=== PATIENT | female | born 1975 | race Caucasian/White ===

== ENCOUNTER → 2017-07-29 18:50 | Outpatient (REF) | payer OTHER, SELFPAY ==
[2017-07-29 19:27] LABS: Add Manual Diff / Slide Review NO; Basophils Percent Auto 0.8 % (0-2); Eosinophils Percent Auto 0.9 % (2-4); Hematocrit 43.8 % (36-46); Hemoglobin 14.9 g/dL (12.0-16.0); Lymphocytes Percent Auto 25.6 % (25-40); Mean Corpuscular HGB Conc 34.1 % (30-36); Mean Corpuscular Hemoglobin 31.7 PG (26-34); Mean Corpuscular Volume 92.9 fL (80-100); Monocytes Percent Auto 5.2 % (3-14); Neutrophils Absolute Auto 5900 /uL (3000-5900); Neutrophils Percent Auto 67.5 % (50-75); Platelet Count 198 X10^3/uL (150-400); Red Blood Cell Count 4.71 X10^6/uL (4.0-5.2); Red Cell Distribution Width 13.3 % (11.6-14.8); White Blood Cell Count 8.8 X10^3/uL (4.5-11.0)
[2017-07-29 19:56] LABS: Alanine Aminotransferase 28 IU/L (9-52); Albumin 4.6 g/dL (3.5-5.0); Albumin Globulin Ratio 1.5 (1.0-2.8); Alkaline Phosphatase 40 U/L (38-126); Aspartate Aminotransferase 20 IU/L (14-36); BUN Creatinine Ratio 21.7 (6-22); Bilirubin Total 0.7 mg/dL (0.2-1.3); Blood Urea Nitrogen 13 mg/dL (7-17); Calcium 9.4 mg/dL (8.4-10.2); Carbon Dioxide 27 mmol/L (22-32); Chloride 101 mmol/L (98-107); Estimated Glomerular Filt Rate > 60.0 mL/min (>60); Glucose 101 mg/dL (70-100); HEMOLYSIS < 15 (0-50); Sodium 139 mmol/L (137-145); Total Protein 7.6 g/dL (6.3-8.2)
[2017-07-29 20:12] LABS: Free T3, Triiodothyronine Free 4.33 pg/mL (2.77-5.27)
[2017-07-29 20:26] LABS: Thyroid Stimulating Hormone 1.47 uIU/mL (0.47-4.68)
== END ==
LOC: LAB 18:50
PROVIDERS: Family Provider Family Medicine; PCP Family Medicine; Visit Provider Registered Nurse
DX: F41.9 Anxiety disorder, unspecified (principal)
CPT/HCPCS: 80053; 84439; 84443; 84481; 85025

== ENCOUNTER → 2017-11-08 07:43 | Outpatient (CLI) | payer OTHER, SELFPAY ==
[2017-11-08 09:05] LABS: HEMOLYSIS < 15 (0-50); Iron 148 ug/dL (37-170)
[2017-11-08 09:11] LABS: Glucose 96 mg/dL (70-100)
[2017-11-08 09:15] LABS: Percent Iron Saturation 49 % (15-50); Total Iron Binding Capacity 302 ug/dL (265-497); Transferrin 249 mg/dL (206-381)
[2017-11-12 15:06] LABS: Dehydroepiandrosterone Sulfate 138 mcg/dL (19-231); Insulin Level Total 1.4 uIU/mL (2.0-19.6)
[2017-11-12 16:12] LABS: Estradiol 96 pg/mL
== END ==
PROVIDERS: PCP Family Medicine; Visit Provider Obstetrics & Gynecology
DX: L65.9 Nonscarring hair loss, unspecified (principal); E28.1 Androgen excess
CPT/HCPCS: 36415; 82627; 82670; 82947; 83525; 83540; 83550

== ENCOUNTER → 2019-05-01 14:22 | Outpatient (CLI) | payer OTHER, SELFPAY ==
--- NOTE | 2019-05-01 | DI.RAD.S_ITS ---
PROCEDURE: XR SHOULDER RT MIN 2V INDICATIONS: RIGHT SHOULDER PAIN TECHNIQUE: 3 views of the shoulder were acquired. COMPARISON: None. FINDINGS: Bones: No fractures or dislocations. No suspicious bony lesions. Visualized ribs appear intact. Mild AC joint degeneration. Soft tissues: No suspicious soft tissue calcifications. IMPRESSION: Mild degenerative changes. If the patient's pain or other symptoms persist, consider further evaluation with MRI Dictated by: Ciaran Block M.D. on 05/01/2019 at 16:42 Approved by: Ciaran Block M.D. on 05/01/2019 at 16:43
== END ==
PROVIDERS: Family Provider Family Medicine; PCP Family Medicine; Referring Provider Family Medicine; Visit Provider Family Medicine
DX: M25.511 Pain in right shoulder (principal); M19.011 Primary osteoarthritis, right shoulder
CPT/HCPCS: 73030

== ENCOUNTER 2022-11-06 14:32 | Emergency (ER) | payer OTHER, SELFPAY ==
[2022-11-06 14:43] VITALS: BP 140/77; PULSE 89; RESP 18; TEMP 36.9; O2SAT 99; BMI 26.4
[2022-11-06 17:01] LABS: Add Manual Diff / Slide Review NO; Basophils Absolute Auto 100 /uL (0-100); Basophils Percent Auto 0.9 % (0-2); Eosinophils Absolute Auto 100 /uL (0-450); Eosinophils Percent Auto 0.9 % (2-4); Hematocrit 42.2 % (36-46); Hemoglobin 14.2 g/dL (12.0-16.0); Lymphocytes Absolute Auto 2400 /uL (1100-4500); Lymphocytes Percent Auto 23.8 % (25-40); Mean Corpuscular HGB Conc 33.8 % (30-36); Mean Corpuscular Hemoglobin 30.4 PG (26-34); Mean Corpuscular Volume 89.9 fL (80-100); Monocytes Absolute Auto 400 /uL (0-900); Monocytes Percent Auto 4.4 % (3-14); Neutrophils Absolute Auto 7100 /uL (1500-7000); Platelet Count 253 X10^3/uL (150-400); Red Blood Cell Count 4.69 X10^6/uL (4.0-5.2); White Blood Cell Count 10.1 X10^3/uL (4.5-11.0)
[2022-11-06 17:12] LABS: Alanine Aminotransferase 15 IU/L (<35); Albumin 4.2 g/dL (3.5-5.0); Albumin Globulin Ratio 1.2 (1.0-2.8); Alkaline Phosphatase 46 U/L (38-126); Aspartate Aminotransferase 21 IU/L (14-36); BUN Creatinine Ratio 18.8 (6-22); Bilirubin Total 0.4 mg/dL (0.2-1.3); Blood Urea Nitrogen 13 mg/dL (7-17); Carbon Dioxide 25 mmol/L (22-32); Chloride 106 mmol/L (98-107); Estimated Glomerular Filt Rate > 60 mL/min (>60); Globulin 3.4 g/dL (1.7-4.1); Glucose 101 mg/dL (70-100); HEMOLYSIS < 15 (0-50); Lipase 44 U/L (23-300); Potassium 4.1 mmol/L (3.4-5.1); Sodium 139 mmol/L (137-145); Total Protein 7.6 g/dL (6.3-8.2)
[2022-11-06 17:28] LABS: Procalcitonin < 0.03 ng/mL (<0.5)
--- NOTE | 2022-11-06 17:31 | DI.CT.S_ITS ---
PROCEDURE: CT ABDOMEN PELVIS W CON INDICATIONS: concern for perianal/rectal abscess TECHNIQUE: After the administration of oral and IV contrast, axial sections were acquired from the lung bases to the pubic symphysis. Coronal and sagittal reformats were performed. For radiation dose reduction, the following was used: automated exposure control, adjustment of mA and/or kV according to patient size. COMPARISON: None. FINDINGS: Image quality: Excellent. Lung bases: Unremarkable. Heart: No significant findings. ABDOMEN: Liver: No focal lesion. Gallbladder: Within normal limits. Biliary ducts: Unremarkable. Pancreas: Unremarkable. Spleen: Unremarkable. Adrenal Glands: Unremarkable. Kidneys and Ureters: No hydronephrosis. Stomach and Bowel: Stomach is not distended. No small bowel obstruction. Prominent stool in the colon. Normal appendix. Rectal tube. Contrast in the distal colon and rectum from enema. No perianal fistula is identified. Peritoneum: No abnormal intraperitoneal fluid. No free air. Ventral Wall: No hernia. Abdominal Nodes: No retroperitoneal or mesenteric adenopathy by size criteria. Vessels: Aorta and inferior vena cava are normal in size. PELVIS: Pelvic Organs: IUD centered in the uterus. No free fluid. Bladder: No stone. Pelvic Nodes: No enlarged lymph nodes. Miscellaneous: No inguinal hernias are seen. Bones: No aggressive appearing lesion. Small bone island in the right hip. Mild DDD at L1-L2. IMPRESSION: 1. No perianal fistula identified. No contrast leak. No free fluid. 2. Prominent stool in the colon. 3. Normal appendix. Dictated by: Bala Martin M.D. on 11/06/2022 at 18:25 Approved by: Bala Martin M.D. on 11/06/2022 at 18:31
[2022-11-06] MEDS: HYDROMORPHONE 1 MG INJ IV (17:49)
--- NOTE | 2022-11-06 17:56 | ED_ITS ---
HPI - Skin/Abscess/Foreign Bdy <Deolres Kelly PA-C - Last Filed: 11/07/22 12:39> General Chief complaint: Skin/Abscess/Foreign Body Stated complaint: bleeding from rectum tore open Time Seen by Provider: 11/06/22 16:02 Source: patient Mode of arrival: Ambulatory Limitations: no limitations History of Present Illness HPI narrative: Patient is a 47-year-old female who presents concern for a perirectal abscess. She reports she initially thought she had a hemorrhoid. It became more tender over the past several days and 2 days ago started draining purulent material. She made an appointment with a surgery Clinic in [place] but it wasn't until the end of the week and she is in too much pain to go to work today. She is been feeling unwell but denies fever or chills, chest pain, cough, nausea or vomiting. She denies vaginal discharge or urinary symptoms. She has not stoole d recently due to the pain. It is difficult to sit down. 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 Related Data Home Medications Medication Instructions Recorded Confirmed methylphenidate HCl 10 mg tablet 5 mg PO BID 10/09/17 11/13/17 (Ritalin) venlafaxine 150 mg 150 mg PO DAILY 11/13/17 11/13/17 capsule,extended release 24 hr (Effexor XR) Previous Rx's Medication Instructions Recorded eflornithine 13.9 % topical cream 13.9 % topical BID #45 grams 11/13/17 (Vaniqa) amoxicillin 875 mg-potassium 1 tab PO BID #10 tabs 11/06/22 clavulanate 125 mg tablet hydrocortisone 2.5 % topical cream 1 applic WA QD-BID PRN hemorrhoids 11/06/22 with perineal applicator #30 grams (Anusol-HC) Allergies Allergy/AdvReac Type Severity Reaction Status Date / Time meloxicam [MELOXICAM] Allergy Unknown Verified 11/06/22 14:51 metronidazole [METRONIDAZOLE] Allergy Unknown Verified 11/06/22 14:51 Sulfa (Sulfonamide Allergy Unknown Verified 11/06/22 14:51 Antibiotics) [SULFA (SULFONAMIDE ANTIBIOTICS)] Review of Systems <Delores Kelly PA-C - Last Filed: 11/07/22 12:39> Review of Systems ROS Unobtainable: All systems reviewed & are unremarkable except as noted in HPI and below Patient History <Delores Kelly PA-C - Last Filed: 11/07/22 12:39> Medical History ADHD Ankle pain (~2016) Asthma Bipolar disorder Chicken pox (~1978) Eczema Fractures Heavy menstrual period (~1986) Irregular menstrual cycle (~1986) Migraines Ovarian cyst (~1986) Painful menstrual periods (~1986) PCOS (polycystic ovarian syndrome) Post traumatic stress disorder (PTSD) Rosacea Seasonal allergies Surgical History Anesthesia History of ankle surgery (~2016) History of hip surgery (~2009) History of knee surgery (~2015) S/P arthroscopic knee surgery S/P ORIF (open reduction internal fixation) fracture Status post hip surgery Family History Father Mental health problem Brother Hypertension Grandmother Obesity Diabetes mellitus Congestive heart failure Heart disease Hyperlipidemia Hypertension Grandfather Cancer Mental health problem Grandmother Diabetes mellitus Mental health problem Social History Smoking Status: Never smoker Smoking Status: Never smoker alcohol intake frequency: holidays/special occasions only Substance Use Type: marijuana Exam <Delores Kelly PA-C - Last Filed: 11/07/22 12:39> Narrative Exam Narrative: GENERAL: 47 year old patient appears stated age. Well-developed patient, in mo derate distress. NEURO: AOx3. HEAD: Atraumatic. Normocephalic. EYES: Pupils equal round and reactive. Extraocular motions intact. No scleral icterus. No injection or drainage. ENT: Nose without bleeding or purulent drainage. Airway patent. CARDIOVASCULAR: Regular rate and rhythm without murmurs, gallops, or rubs. RESPIRATORY: Clear to auscultation. Breath sounds equal bilaterally. No wheezes, rales, or rhonchi. GASTROINTESTINAL: Abdomen soft, patient reports mild diffuse tenderness over low er abdomen to palpation. Visual exam of anus consistent with tender hemorrhoid, significant tenderness of perineal tissue without fluctuance, erythema. No visible purulent drainage. EXTREMITIES: No edema or joint tenderness. SKIN: No rash or erythema of visible areas Initial Vital Signs Initial Vital Signs: Vital Signs Temperature 98.5 F 11/06/22 14:43 Pulse Rate 89 11/06/22 14:43 Respiratory Rate 18 11/06/22 14:43 Blood Pressure 140/77 11/06/22 14:43 Pulse Oximetry 99 11/06/22 14:43 Oxygen Delivery Method Room Air 11/06/22 14:43 <Melissa Kevin DO - Last Filed: 11/13/22 09:50> Initial Vital Signs Initial Vital Signs: Vital Signs Temperature 98.5 F 11/06/22 14:43 Pulse Rate 89 11/06/22 14:43 Respiratory Rate 18 11/06/22 14:43 Blood Pressure 140/77 11/06/22 14:43 Pulse Oximetry 99 11/06/22 14:43 Oxygen Delivery Method Room Air 11/06/22 14:43 Course <Delores Kelly PA-C - Last Filed: 11/07/22 12:39> Orders Ordered: Discontinued Medications Hydromorphone HCl (Hydromorphone 1 Mg Inj) 1 mg IV NOW ONE Stop: 11/06/22 17:45 Last Admin: 11/06/22 17:49 Dose: 1 mg Documented By: PETER Sodium Chloride (Normal Saline 0.9%) 1,000 mls @ 1,000 mls/hr IV BOLUS ONE Stop: 11/06/22 17:07 Last Admin: 11/06/22 18:10 Dose: Not Given Documented By: PETER Sodium Chloride (Normal Saline 0.9%) 1,000 mls @ 1,000 mls/hr IV BOLUS ONE Stop: 11/06/22 17:57 Last Infusion: 11/06/22 19:20 Dose: 0 mls/hr Documented By: Admin: 11/06/22 18:08 Dose: 1,000 mls/hr Documented By: PETER Ondansetron HCl (Ondansetron 4 Mg/2 Ml Inj) 4 mg IV NOW PRN PRN Reason: Nausea And Vomiting Ondansetron HCl (Ondansetron 4 Mg Odt) 4 mg SL NOW PRN PRN Reason: Nausea And Vomiting Vital Signs Vital signs: Vital Signs - 8 hr 11/06/22 14:43 11/06/22 18:08 11/06/22 18:09 Temperature 98.5 F Pulse Rate 89 70 Respiratory Rate 18 Blood Pressure 140/77 133/75 Pulse Oximetry 99 100 Oxygen Delivery Method Room Air Room Air 11/06/22 18:09 Temperature Pulse Rate 74 Respiratory Rate Blood Pressure Pulse Oximetry 100 Oxygen Delivery Method Room Air <Melissa Kevin DO - Last Filed: 11/13/22 09:50> Orders Ordered: Discontinued Medications Hydromorphone HCl (Hydromorphone 1 Mg Inj) 1 mg IV NOW ONE Stop: 11/06/22 17:45 Last Admin: 11/06/22 17:49 Dose: 1 mg Documented By: PETER Sodium Chloride (Normal Saline 0.9%) 1,000 mls @ 1,000 mls/hr IV BOLUS ONE Stop: 11/06/22 17:07 Last Admin: 11/06/22 18:10 Dose: Not Given Documented By: PETER Sodium Chloride (Normal Saline 0.9%) 1,000 mls @ 1,000 mls/hr IV BOLUS ONE Stop: 11/06/22 17:57 Last Infusion: 11/06/22 19:20 Dose: 0 mls/hr Documented By: Admin: 11/06/22 18:08 Dose: 1,000 mls/hr Documented By: PETER Ondansetron HCl (Ondansetron 4 Mg/2 Ml Inj) 4 mg IV NOW PRN PRN Reason: Nausea And Vomiting Ondansetron HCl (Ondansetron 4 Mg Odt) 4 mg SL NOW PRN PRN Reason: Nausea And Vomiting Vital Signs Vital signs: Vital Signs - 8 hr 11/06/22 14:43 11/06/22 18:08 11/06/22 18:09 Temperature 98.5 F Pulse Rate 89 70 Respiratory Rate 18 Blood Pressure 140/77 133/75 Pulse Oximetry 99 100 Oxygen Delivery Method Room Air Room Air 11/06/22 18:09 Temperature Pulse Rate 74 Respiratory Rate Blood Pressure Pulse Oximetry 100 Oxygen Delivery Method Room Air MDM - Skin/Abscess/Foreign Bdy <Delores Kelly PA-C - Last Filed: 11/07/22 12:39> Lab Data 11/06/22 16:40 11/06/22 16:40 Labs: Lab Results 11/06/22 11/06/22 11/06/22 Range/Units 16:40 16:40 16:40 WBC 10.1 (4.5-11.0) X10^3/uL RBC 4.69 (4.0-5.2) X10^6/uL Hgb 14.2 (12.0-16.0) g/dL Hct 42.2 (36-46) % MCV 89.9 (80-100) fL MCH 30.4 (26-34) PG MCHC 33.8 (30-36) % RDW 13.0 (11.6-14.8) % Plt Count 253 (150-400) X10^3/uL Neut % (Auto) 70.0 (50-75) % Lymph % (Auto) 23.8 L (25-40) % [place] % (Auto) 4.4 (3-14) % Eos % (Auto) 0.9 L (2-4) % Baso % (Auto) 0.9 (0-2) % Neut # (Auto) 7100 H (8217-0321) /uL Lymph # (Auto) 2400 (8640-4893) /uL [place] # (Auto) 400 (0-900) /uL Eos # (Auto) 100 (0-450) /uL Baso # (Auto) 100 (0-100) /uL Sodium 139 (137-145) mmol/L Potassium 4.1 (3.4-5.1) mmol/L Chloride 106 (98-107) mmol/L Carbon Dioxide 25 (22-32) mmol/L BUN 13 (7-17) mg/dL Creatinine 0.69 (0.52-1.04) mg/dL Estimated GFR > 60 (>60) mL/min BUN/Creatinine Ratio 18.8 (6-22) Glucose 101 H (70-100) mg/dL Lactate 1.0 (0.7-2.1) mmol/L Calcium 9.0 (8.4-10.2) mg/dL Total Bilirubin 0.4 (0.2-1.3) mg/dL AST 21 (14-36) IU/L ALT 15 (<35) IU/L Alkaline Phosphatase 46 (38-126) U/L Total Protein 7.6 (6.3-8.2) g/dL Albumin 4.2 (3.5-5.0) g/dL Globulin 3.4 (1.7-4.1) g/dL Albumin/Globulin Ratio 1.2 (1.0-2.8) Lipase 44 (23-300) U/L Procalcitonin < 0.03 (<0.5) ng/mL Imaging Data CT scan - abdomen/pelvis: Radiologist's Impression: PROCEDURE:? CT ABDOMEN PELVIS W CON ? INDICATIONS:? concern for perianal/rectal abscess ? TECHNIQUE:? After the administration of oral and IV contrast, axial sections were acquired from the lung bases to the pubic symphysis.? Coronal and sagittal reformats were performed.? For radiation dose reduction, the following was used:? automated exposure control, adjustment of mA and/or kV according to patient size. ? COMPARISON:? None. ? FINDINGS:? Image quality:? Excellent.? ? Lung bases:? Unremarkable.? ? Heart:? No significant findings. ? ? ABDOMEN: Liver:? No focal lesion. Gallbladder:? Within normal limits. Biliary ducts:? Unremarkable.? ? Pancreas:? Unremarkable.? ? Spleen:? Unremarkable.? ? Adrenal Glands:? Unremarkable.? ? Kidneys and Ureters:? No hydronephrosis.? ? ? Stomach and Bowel:? Stomach is not distended.? No small bowel obstruction.? Prominent stool in the colon.? Normal appendix.? Rectal tube.? Contrast in the distal colon and rectum from enema.? No perianal fistula is identified.? Peritoneum:? No abnormal intraperitoneal fluid.? No free air.? ? Ventral Wall: ? No hernia.? Abdominal Nodes:? No retroperitoneal or mesenteric adenopathy by size criteria.? Vessels:? Aorta and inferior vena cava are normal in size.? ? PELVIS: Pelvic Organs:? IUD centered in the uterus.? No free fluid. ? Bladder:? No stone. Pelvic Nodes: No enlarged lymph nodes.? Miscellaneous: No inguinal hernias are seen. ? ? ? Bones:? No aggressive appearing lesion.? Small bone island in the right hip.? Mild DDD at L1-L2. ? ? IMPRESSION:? 1. No perianal fistula identified.? No contrast leak.? No free fluid. ? 2. Prominent stool in the colon. ? 3. Normal appendix.? ? Dictated by: Bala Martin M.D. on 11/06/2022 at 18:25 ? ? Approved by: Bala Martin M.D. on 11/06/2022 at 18:31 ? MDM Narrative Medical decision making narrative: Multiple etiologies for patient's symptoms considered including, but not limited to: Cellulitis, perirectal or perianal abscess, fistula. Patient initially declined pain medications. Discussed imaging with Dr. Kevin who recommended IV contrast and rectal contrast. Patient agreed to pain medication in order to tolerate rectal contrast administration. CT without evidence of abscess or fistula. Labs without evidence of infection or sepsis. Given her report of purulent drainage 2 days ago, suspect there was an abscess that spontaneously drained and is no longer present. I do see a bleeding hemorrhoid that is very tender. She has a referral to a surgery Clinic in [place] in 2 days to have this addressed. Will prescribe 5 day course of Augmentin for this resolving abscess and Anusol for hemorrhoid treatment. Patient feels comfortable treating her constipation. Patient's symptoms improved over duration of stay with above-stated therapies. Findings and discharge diagnosis discussed with patient/family followed by verbalization of understanding Return precautions discussed with patient/family whom verbalize understanding of diagnosis and plan <Melissa Kevin, DO - Last Filed: 11/13/22 09:50> Lab Data Labs: Lab Results 11/06/22 11/06/22 11/06/22 Range/Units 16:40 16:40 16:40 WBC 10.1 (4.5-11.0) X10^3/uL RBC 4.69 (4.0-5.2) X10^6/uL Hgb 14.2 (12.0-16.0) g/dL Hct 42.2 (36-46) % MCV 89.9 (80-100) fL MCH 30.4 (26-34) PG MCHC 33.8 (30-36) % RDW 13.0 (11.6-14.8) % Plt Count 253 (150-400) X10^3/uL Neut % (Auto) 70.0 (50-75) % Lymph % (Auto) 23.8 L (25-40) % [place] % (Auto) 4.4 (3-14) % Eos % (Auto) 0.9 L (2-4) % Baso % (Auto) 0.9 (0-2) % Neut # (Auto) 7100 H (5129-8201) /uL Lymph # (Auto) 2400 (0600-0228) /uL [place] # (Auto) 400 (0-900) /uL Eos # (Auto) 100 (0-450) /uL Baso # (Auto) 100 (0-100) /uL Sodium 139 (137-145) mmol/L Potassium 4.1 (3.4-5.1) mmol/L Chloride 106 (98-107) mmol/L Carbon Dioxide 25 (22-32) mmol/L BUN 13 (7-17) mg/dL Creatinine 0.69 (0.52-1.04) mg/dL Estimated GFR > 60 (>60) mL/min BUN/Creatinine Ratio 18.8 (6-22) Glucose 101 H (70-100) mg/dL Lactate 1.0 (0.7-2.1) mmol/L Calcium 9.0 (8.4-10.2) mg/dL Total Bilirubin 0.4 (0.2-1.3) mg/dL AST 21 (14-36) IU/L ALT 15 (<35) IU/L Alkaline Phosphatase 46 (38-126) U/L Total Protein 7.6 (6.3-8.2) g/dL Albumin 4.2 (3.5-5.0) g/dL Globulin 3.4 (1.7-4.1) g/dL Albumin/Globulin Ratio 1.2 (1.0-2.8) Lipase 44 (23-300) U/L Procalcitonin < 0.03 (<0.5) ng/mL Discharge Plan Departure Patient Disposition: Home Clinical Impression: Acute hemorrhoid Cellulitis Qualifiers: Site of cellulitis: other site Qualified Code(s): L03.818 - Cellulitis of other sites Instructions: DI for Hemorrhoids Activity Restrictions/Additional Instructions: *You have been diagnosed with a hemorrhoid and perineal cellulitis. There is no abscess or fistula on CT. Your blood work does not show signs of infection. Please follow up with the surgery clinic as scheduled. *What to do: *Please continue to take your regular medications as directed. [ x] New medication prescriptions sent to your pharmacy: [facility] [ ] New medication written as a paper prescription [ ] No new medications given *Please follow up with your primary care provider in 2-3 days, call for an appointment. Let them know you were seen in the Emergency Department and that we ask that you be seen in follow up. We will electronically transmit a record of today's note if your PCP is in our system *If you do not have a primary care provider please contact the [facility] Resource line at [phone]. They will ask some questions about your medical history and help get you set up with a doctor in the community. *Return to Emergency Department if you should have any new, worsening or concerning symptoms, such as [fever greater than 101 F, shaking chills, worsening pain, persistent vomiting or other concerning symptoms]. Prescriptions: New hydrocortisone [Anusol-HC] 2.5 % cream with perineal applicator 1 applic WA QD-BID PRN (Reason: hemorrhoids) Qty: 30 0RF amoxicillin-pot clavulanate 875-125 mg tablet 1 tab PO BID Qty: 10 0RF No Action methylphenidate HCl [Ritalin] 10 mg tablet 5 mg PO BID venlafaxine [Effexor XR] 150 mg capsule,extended release 24hr 150 mg PO DAILY eflornithine [Vaniqa] 13.9 % cream 13.9 % TOP BID Qty: 45 3RF Referrals: Radha Iniguez MD [Primary Care Provider] - Stand Alone Forms: Patient Portal/API <Melissa Kevin DO - Last Filed: 11/13/22 09:50> [facility] [place] Attestation: I was immediately available in the department for consultation. Documentation has been reviewed.
[2022-11-06 18:08] VITALS: PULSE 70; O2SAT 100
[2022-11-06] MEDS: SODIUM CHLORIDE 0.9% 1,000 ML 1000 ML IV (18:08)
[2022-11-06 18:09] VITALS: BP 133/75; PULSE 74; O2SAT 100
[2022-11-06 18:30] VITALS: BP 118/63; PULSE 72; O2SAT 94
== END 2022-11-06 19:22 | disposition home or self-care (01) ==
PROVIDERS: Emergency Medicine; Emergency Provider Physician Assistant; Family Provider Family Medicine; PCP Internal Medicine
DX: L03.818 Cellulitis of other sites (principal); K64.9 Unspecified hemorrhoids
CPT/HCPCS: 36415; 74177; 80053; 83605; 83690; 84145; 85025; 96361; 96374; 99284; J1170